=== PATIENT | male | born 1965 | race African-American/Black ===

== ENCOUNTER 2016-08-31 09:46 | Emergency (ER) ==
[2016-08-31 09:52] VITALS: BP 134/86
[2016-08-31] MEDS ORDERED: TORADOL IM ONE (11:21)
--- NOTE | 2016-08-31 11:26 | Diag Imaging Result Document ---
PROCEDURE NAME: WRIST COMPLETE RIGHT - 08/31/2016 RIGHT WRIST, 3 VIEWS: FINDINGS: There is no evidence of acute fracture or dislocation. There are some subchondral cysts present in the scaphoid capitate and lunate consistent with degenerative arthritis. IMPRESSION: Osteoarthritis.
--- NOTE | 2016-08-31 11:28 | PROVIDER DOCUMENTATION ---
HPI-Musculoskeletal Pain/Inj - GENERAL Chief Complaint: Work Related Injury Stated Complaint: WRIST INJURY Time Seen by Provider: 08/31/16 10:10 Source: patient - HX OF PRESENT ILLNESS-MUSKULOSKELTAL Nature of Presenting Problem: 51 y/o BM c/o R wrist pain x 1 day. Pt states he was cranking a quita last night at work and he felt pain in his R wrist afterwards. States that he noted pain to ulnar aspect and states worse today with LROM. Denies any pop at time of injury, numbness/tingling, other sxs. Review of Systems - Adult - REVIEW OF SYSTEMS - ADULT Constitutional: reports: no symptoms reported. denies: chills, fever Eyes: reports: no symptoms reported. denies: blurred vision, double vision Ears, Nose, Mouth & Throat: reports: no symptoms reported. denies: ear pain, nose pain Cardiovascular: reports: no symptoms reported. denies: chest pain, palpitations Respiratory: reports: no symptoms reported. denies: dyspnea on exertion, shortness of breath Gastrointestinal: reports: no symptoms reported. denies: nausea, vomiting Genitourinary: reports: no symptoms reported. denies: dysuria, discharge Musculoskeletal: reports: see HPI, joint pain. denies: back pain, joint swelling, neck pain Integumentary: reports: no symptoms reported. denies: nail changes, rash Neurological: reports: no symptoms reported. denies: numbness, paresthesia Psychiatric: reports: no symptoms reported Endocrine: reports: no symptoms reported. denies: cold intolerance, heat intolerance Hematologic/Lymphatic: reports: no symptoms reported. denies: easy bruising, prolonged bleeding Allergic/Immunologic: reports: no symptoms reported All Other Systems: Reviewed and Negative Past History - Adult - PAST MEDICAL HISTORY-ADULT Review of Records: reports: Nursing Assessment Review, Medications Reviewed Major Childhood Illnesses: reports: denies history Cardiovascular: reports: HTN Respiratory: reports: denies history Gastrointestinal: reports: denies history Obstetrical/Gynecological: reports: denies history Genitourinary: reports: denies history. denies: kidney disease (denies) Musculoskeletal: reports: other Neurological: reports: denies history Endocrine/Immune: reports: denies history Other Conditions: reports: denies history - PRIOR SURGERIES/PROCEDURES Surgical/Procedure History: reports: orthopedic (extremity) - FAMILY HISTORY Family History: reviewed, not pertinent - SOCIAL HISTORY Smoking: quit greater than 1 year Physical Exam-Injury Related - Physical Exam-Injury Related Initial Vital Signs Reviewed: Yes General Appearance: alert, mild distress Eyes: pink conjunctivae Head, Ears, Nose, Mouth & Throat: normocephalic/atraumatic Neck: supple, normal inspection Respiratory: no respiratory distress Cardiovascular: normal peripheral pulses, regular rate, rhythm Peripheral Pulses: radial (R): 2+, radial (L): 2+ Back Exam: normal inspection Extremity: normal gait, normal inspection, normal capillary refill, swelling ( mild swelling to R wrist), tenderness (ulnar aspect R wirst). negative: normal range of motion (LROM at R wrist), abnormal NV exam, deformity Integumentary: normal color, warm/dry, blanching Neurologic: negative: aphasia, sensory deficit (RUE) Psych/Mental Status: normal mood/affect, normal thought content, normal thought process, oriented x 3 Departure - Departure Time of Disposition Order: 11:10 DIAGNOSIS: Osteoarthritis Qualifiers: Osteoarthritis location: wrist Osteoarthritis type: unspecified Laterality: right Qualified Code(s): M19.031 - Primary osteoarthritis, right wrist Right wrist sprain Qualifiers: Encounter type: initial encounter Qualified Code(s): S63.501A - Unspecified sprain of right wrist, initial encounter Disposition: HOME 01 Certified Medical Emergency: Emergent Condition: Stable Additional Instructions: Take medications as directed. Follow up with specialist for further management. Ice or heat as needed. ED Follow Up Instructions: You have been treated by a care provider in the Emergency Department. These instructions are being provided to you so you can have an understanding of how to care for yourself upon discharge. Upon discharge from the Emergency Department, you are responsible for making arrangements for follow-up care by a physician of your choice. Take all prescribed medications as directed. Return to the Emergency Department immediately for any new or worsening symptoms. You may call the Physician Referral phone number at [phone] to obtain a list of Physicians who are taking new patients. Prescriptions: Famotidine [Pepcid] 20 mg PO DAILY #20 tablet Ketorolac [Toradol] 10 mg PO Q6H PRN PRN #30 tablet PRN Reason: Pain Referrals: Donnie Alfaro MD [Primary Care Provider] - Ricky Trimble MD [STAFF PHYSICIAN] - Attestation - Physician/ TISH Attestation Patient care was provided by Advanced Practice Provider:: Yes Advanced Practice Provider:: Lexy Frederick Advanced Practice Provider documentation review:: The Mid-level provider documentation, treatment plan and medical decision making was reviewed by the physician who agrees with all treatment and medical decision making by the MLP.
== END 2016-08-31 11:57 | disposition home or self-care (01) ==
LOC: ED 09:46
DX: S63.501A Unspecified sprain of right wrist, initial encounter (principal); M19.031 Primary osteoarthritis, right wrist; M25.531 Pain in right wrist; M25.431 Effusion, right wrist; I10 Essential (primary) hypertension; Z87.891 Personal history of nicotine dependence; X58.XXXA Exposure to other specified factors, initial encounter
CPT/HCPCS: J1885